=== PATIENT | male | born 1960 | race Caucasian/White ===

== ENCOUNTER → 2016-11-03 | Outpatient (CLI) | payer BC ==
[~2016-11-03] MED LIST: CIPR500T19 PO; COZA100T2 PO; LOSA100T36 PO; ROXI1TAB2 PO; TYLE650T25 PO
== END ==
LOC: M SMT PRO 09:01
PROVIDERS: ATTEND Urology
DX: N52.31 Erectile dysfunction following radical prostatectomy (principal)

== ENCOUNTER 2018-01-11 09:05 | Day surgery (SDC) | payer BC ==
[~2018-01-11 09:05] MED LIST changes: -CIPR500T19 PO; -COZA100T2 PO; +LIDOCAINE 2% INJ 100 MG/5 ML SDV (FOR ANES.) As Ordered; -LOSA100T36 PO; +PROPOFOL 200 MG/20 ML VIAL As Ordered; -ROXI1TAB2 PO; -TYLE650T25 PO
[2018-01-11] MEDS: NS 1,000 ML IV (09:30)
[2018-01-11] MEDS ORDERED: PROPOFOL 200 MG/20 ML VIAL As Ordered (11:04)
== END 2018-01-11 11:42 | disposition home or self-care (01) ==
LOC: M OPP 09:05
DX: R19.5 Other fecal abnormalities (principal); K62.5 Hemorrhage of anus and rectum; K57.30 Diverticulosis of large intestine without perforation or abscess without bleeding; K64.8 Other hemorrhoids; I10 Essential (primary) hypertension; Z85.46 Personal history of malignant neoplasm of prostate; E78.5 Hyperlipidemia, unspecified; M10.9 Gout, unspecified; N40.1 Benign prostatic hyperplasia with lower urinary tract symptoms; F17.290 Nicotine dependence, other tobacco product, uncomplicated; Z79.82 Long term (current) use of aspirin; Z79.899 Other long term (current) drug therapy; Z80.0 Family history of malignant neoplasm of digestive organs
CPT/HCPCS: 45378

== ENCOUNTER → 2023-12-14 | Outpatient (REF) | payer MEDICARE ==
[~2023-12-14] MED LIST changes: +ASPI-546 PO; +CIPR500T19 PO; -LIDOCAINE 2% INJ 100 MG/5 ML SDV (FOR ANES.) As Ordered; +LOSA-530 PO; +LOSA100T46 PO; -PROPOFOL 200 MG/20 ML VIAL As Ordered; +ROXI1TAB2 PO; +TYLE650T25 PO
== END ==
LOC: M SFHCDERM 15:53
PROVIDERS: ATTEND Dermatology
DX: Z48.02 Encounter for removal of sutures (principal)

== ENCOUNTER 2024-03-18 06:38 | Day surgery (SDC) | payer MEDICARE ==
[~2024-03-18] VITALS: Ht 177.8 cm; Wt 91.9 kg
[~2024-03-18 06:38] MED LIST changes: +FLUO0.0216 TOP; +LOSA100T5 PO; +NAPR-837 PO; +OXYB15TA14 PO
[2024-03-18] MEDS ORDERED: dexmedeTOMIDine (4MCG/ML)200MCG/50ML BTL (PRECEDEX) As Ordered ONE (07:00)
[2024-03-18] MEDS ORDERED: ONDANSETRON 4MG 2ML VIAL As Ordered ONE (07:00)
[2024-03-18] MEDS ORDERED: LIDOCAINE 2% 100MG/5ML SDV (FOR ANES.) As Ordered ONE (07:00)
[2024-03-18] MEDS ORDERED: MIDAZOLAM INJ 2MG/2ML VIAL As Ordered ONE (07:00)
[2024-03-18] MEDS ORDERED: propofoL 200 MG/20 ML VIAL As Ordered ONE (07:00)
[2024-03-18] MEDS ORDERED: fentaNYL 100 MCG/2 ML INJECTION As Ordered ONE (07:00)
[2024-03-18] MEDS ORDERED: ACETAMINOPHEN 1000MG 100ML IV BAG As Ordered ONE (07:00)
[2024-03-18] MEDS ORDERED: LR 1,000 ML IV SCH (07:20)
[2024-03-18] MEDS ORDERED: BOTOX THERAPEUTIC 100 UNIT VIAL As Ordered ONE (08:04)
[2024-03-18] MEDS: ceFAZolin SOD 2 GM in IV 1 EA IV ONE (09:02)
[2024-03-18 09:55] VITALS: BP 124/64; TEMP 97; O2SAT 96
[2024-05-09] MEDS ORDERED: PRAV20TA2 PO (07:55)
== END 2024-03-18 10:02 | disposition home or self-care (01) ==
LOC: M SDC 06:38
PROVIDERS: ATTEND Urology
DX: N39.3 Stress incontinence (female) (male) (principal); Z85.46 Personal history of malignant neoplasm of prostate; I10 Essential (primary) hypertension; Z85.828 Personal history of other malignant neoplasm of skin; Z79.899 Other long term (current) drug therapy; Z87.891 Personal history of nicotine dependence
CPT/HCPCS: 51715; J0131; J0690; J1100; J2250; J2405; J3010; L8606

== ENCOUNTER 2024-05-13 06:08 | Day surgery (SDC) | payer MEDICARE ==
[~2024-05-13] VITALS: Ht 177.8 cm; Wt 90.4 kg
[~2024-05-13 06:08] MED LIST changes: +PRAV20TA2 PO
[2024-05-13] MEDS: LR 1,000 ML IV SCH (07:05)
[2024-05-13] MEDS: ceFAZolin SOD 2 GM in IV 1 EA IV ONE (07:43)
[2024-05-13] MEDS: LIDOCAINE 2% 5ML JELLY UROJET As Ordered ONE (07:54)
[2024-05-13] MEDS ORDERED: ONDANSETRON 4MG 2ML VIAL As Ordered ONE (07:55)
[2024-05-13] MEDS ORDERED: LIDOCAINE 2% 100MG/5ML SDV (FOR ANES.) As Ordered ONE (07:55)
[2024-05-13] MEDS ORDERED: propofoL 200 MG/20 ML VIAL As Ordered ONE (07:55)
[2024-05-13] MEDS ORDERED: fentaNYL 100 MCG/2 ML INJECTION As Ordered ONE (07:56)
[2024-05-13] MEDS ORDERED: MIDAZOLAM INJ 2MG/2ML VIAL As Ordered ONE (07:56)
[2024-05-13 08:30] VITALS: BP 108/63; TEMP 97.7; O2SAT 97
== END 2024-05-13 08:35 | disposition home or self-care (01) ==
LOC: M SDC 06:08
PROVIDERS: ATTEND Urology
DX: N39.3 Stress incontinence (female) (male) (principal); Z79.899 Other long term (current) drug therapy
CPT/HCPCS: 51715; J0690; J1100; J2250; J2405; J3010; L8606